=== PATIENT | female | born 1950 | race Two or more races ===

== ENCOUNTER 2025-08-28 14:54 | Outpatient (CLI) | payer MEDICARE, MEDICAID ==
--- NOTE | 2025-08-29 09:16 | RADIOLOGY REPORT ---
CLINICAL INDICATION: POST RIGHT KNEE REPLACEMENT TECHNIQUE: 3 radiographic views of the right knee were obtained. Comparison: None FINDINGS/IMPRESSION: There is no evidence of acute fracture or dislocation. Status post right knee arthroplasty.
--- NOTE | 2025-08-29 13:28 | RADIOLOGY REPORT ---
EXAM: DI KNEE LIMITED (AP/LAT) CLINICAL INDICATION: LT. TOTAL KNEE REPLACEMENT TECHNIQUE: DI KNEE LIMITED (AP/LAT) Comparison: DI KNEE LIMITED (AP/LAT) on DOS: 08/28/25 FINDINGS/IMPRESSION: There is no evidence of acute fracture or dislocation. Left total knee arthroplasty. The alignment is anatomical. There is no radiopaque foreign body.
== END 2025-08-28 23:59 | disposition home or self-care (01) ==
LOC: RAD 14:54
PROVIDERS: ATTEND Student in an Organized Health Care Education/Training Program
DX: Z47.1 Aftercare following joint replacement surgery (principal); Z96.653 Presence of artificial knee joint, bilateral
CPT/HCPCS: 73560

== ENCOUNTER 2025-08-28 15:06 | Outpatient (CLI) | payer MEDICARE, MEDICAID ==
--- NOTE | 2025-08-28 17:17 | RADIOLOGY REPORT ---
DI CHEST,TWO VIEWS CLINICAL HISTORY: PRIOR TO MTX INITIATION COMPARISON: None TECHNIQUE: Frontal and lateral view of the chest was obtained FINDINGS: Lines and Tubes: None Lungs: No focal consolidation. Pleura: No effusion. No pneumothorax. Cardiomediastinal contours: Cardiomegaly. Tortuous thoracic aorta. Bones: No acute osseous abnormality. IMPRESSION: 1. No acute pulmonary process. 2. Cardiomegaly.
--- NOTE | 2025-08-28 18:10 | RADIOLOGY REPORT ---
CLINICAL INDICATION: RHEUMATOID ARTHRITIS TECHNIQUE: DI FOOT, COMPLETE (3VW MIN) Comparison: None FINDINGS/IMPRESSION: : There is no evidence of acute fracture or dislocation. Bony demineralization. 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 Degenerative change of the tarsometatarsal joints and dorsum of the midfoot. Plantar calcaneal enthesophyte. Mild soft tissue swelling about the left foot most pronounced about the dorsum. Calcified at athero sclerosis.
--- NOTE | 2025-08-28 18:11 | RADIOLOGY REPORT ---
CLINICAL INDICATION: RHEUMATOID ARTHRITIS TECHNIQUE: DI FOOT, COMPLETE (3VW MIN) Comparison: DI FOOT, COMPLETE (3VW MIN) on DOS: 08/28/25 FINDINGS/IMPRESSION: : Bony demineralization. No definite acute fracture. Moderate 1st MTP joint osteoarthritis with moderate joint space narrowing and osteophyte formation. Degenerative change of the dorsum of the midfoot. Plantar calcaneal enthesophyte. No radiopaque foreign body.
--- NOTE | 2025-08-28 18:13 | RADIOLOGY REPORT ---
CLINICAL INDICATION: BILATERAL RHEUMATOID ARTHRITIS TECHNIQUE: DI WRIST, COMPLETE (3VW MIN) Comparison: None FINDINGS/IMPRESSION: : Significant bony demineralization imits evaluation. No definite acute fracture. Marked degenerative change of the radiocarpal joint with near [id number] articulation. Overlying soft tissues are intact. No radiopaque foreign body.
--- NOTE | 2025-08-28 18:15 | RADIOLOGY REPORT ---
CLINICAL INDICATION: RHEUMATOID ARTHRITIS TECHNIQUE: DI WRIST, COMPLETE (3VW MIN) Comparison: None FINDINGS/IMPRESSION: : Significant bony demineralization imits evaluation. No definite acute fracture. Possible chronic severe erosion of the proximal carpal bones and degenerative change of the radiocarpal joint. Marked degenerative change of the 1st CMC joint. Overlying soft tissues are intact. No radiopaque foreign body.
--- NOTE | 2025-08-28 18:22 | RADIOLOGY REPORT ---
[facility] INDICATION: RHEUMATOID ARTHRITIS COMPARISON: None TECHNIQUE: 8 views of the cervical spine were obtained. FINDINGS: There is bony demineralization limited evaluation. No abnormal widening of the atlantoaxial interval. Grade 1 anterolisthesis at C4-C5 and C5-C6. Moderate degenerative narrowing of the atlantoaxial joint. No definite erosion of the odontoid process. Multilevel cervical spondylosis with multilevel osteophyte formation and mild disc space narrowing. Moderate multilevel facet hypertrophy. Overlying soft tissues are intact. Visualized lung apices are clear. Calcified plaque projects Over the aortic arch. IMPRESSION: 1. Bony demineralization limits evaluation. 2. No definite erosion of the dens on radiograph. 3. Multilevel cervical spondylosis with multilevel osteophyte formation, multilevel mild disc space narrowing and moderate multilevel facet hypertrophy. 4. Grade 1 anterolisthesis at C4-C5 and C5-C6.
--- NOTE | 2025-08-28 18:25 | RADIOLOGY REPORT ---
CLINICAL INDICATION: BILATERAL RHEUMATOID ARTHRITIS TECHNIQUE: DI HAND, COMPLETE (3VW MIN), DI HAND, COMPLETE (3VW MIN) Comparison: None FINDINGS/IMPRESSION: : Significant bony demineralization limits evaluation for acute fracture. RIGHT HAND: Chronic appearing dislocation of the 1st MCP joint with ulnar positioning of the 1st proximal phalanx relative to the 1st metacarpal. Dislocations of the 2nd, 3rd, 4th, and 5th MCP joints with volar and ulnar dislocation of the proximal phalanges relative to the metacarpals. No definite acute fracture. No definite erosion. Degenerative changes of the interphalangeal joints with mild joint space narrowing and mild osteophyte formation. Chronic appearing subluxation of the 1st interphalangeal joint with radial deviation of the 1st distal phalanx relative to the proximal phalanx. 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 LEFT HAND: Dislocations of the 2nd and 3rd MCP joints and to a lesser extent the 5th MCP joint with volar and ulnar dislocation of the proximal phalanges relative to the metacarpals. No definite acute fracture. No definite erosion. Degenerative changes of the interphalangeal joints with mild joint space narrowing and mild osteophyte formation. 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
== END 2025-08-28 23:59 | disposition home or self-care (01) ==
LOC: RAD 15:06
PROVIDERS: ATTEND Internal Medicine Rheumatology
DX: M19.072 Primary osteoarthritis, left ankle and foot (principal); M19.071 Primary osteoarthritis, right ankle and foot; M19.032 Primary osteoarthritis, left wrist; M19.031 Primary osteoarthritis, right wrist; M19.041 Primary osteoarthritis, right hand; M47.812 Spondylosis without myelopathy or radiculopathy, cervical region; M77.32 Calcaneal spur, left foot; M77.31 Calcaneal spur, right foot; M25.774 Osteophyte, right foot; M25.78 Osteophyte, vertebrae; M25.741 Osteophyte, right hand; M43.12 Spondylolisthesis, cervical region; M48.02 Spinal stenosis, cervical region; M25.872 Other specified joint disorders, left ankle and foot; M79.89 Other specified soft tissue disorders; M25.871 Other specified joint disorders, right ankle and foot; M25.841 Other specified joint disorders, right hand; I51.7 Cardiomegaly; I70.0 Atherosclerosis of aorta; M81.0 Age-related osteoporosis without current pathological fracture; I70.90 Unspecified atherosclerosis; M24.441 Recurrent dislocation, right hand; Z78.0 Asymptomatic menopausal state
CPT/HCPCS: 71046; 72052; 73110; 73130; 73560; 73630